=== PATIENT | male | born 1980 | race Caucasian/White ===

== ENCOUNTER 2018-05-12 07:25 | Day surgery (SDC) | payer OTHER ==
[2018-04-29 09:17] VITALS: BMI 29.8
[2018-05-12] MEDS ORDERED: Morphine 10 mg/5 ml Oral Soln PO PRN (08:26)
[2018-05-12] MEDS ORDERED: Dextrose 5%/0.45% NS 1,000 ML IV SCH (08:30)
[2018-05-12] MEDS ORDERED: Propofol 10 mg/ml Inj (20 ML) ONE (09:13)
[2018-05-12] MEDS ORDERED: Rocuronium 10 mg/ml (5 ml) ONE (09:13)
[2018-05-12] MEDS ORDERED: Lidocaine Hydrochloride 5 ML INJ ONE (09:13)
[2018-05-12] MEDS ORDERED: EPINEPHrine 1:1000 Nasal Sol(30mL) ONE (09:16)
[2018-05-12] MEDS: ceFAZolin 1 gm FROZEN Premix 2 GM/100 ML ML IVPB ONE ×2 (09:25→09:30)
[2018-05-12] MEDS ORDERED: Lidocaine/Epinephrine 1% 1:100000 10 ML IJ ONE (09:25)
[2018-05-12] MEDS ORDERED: Neostigmine Methylsulfate 3mg/3ml Syringe IV ONE (10:13)
[2018-05-12] MEDS: HYDROmorphone 0.5 mg/0.5 ml ISec IVP PRN ×2 (10:33→11:10)
[2018-05-12 12:00] VITALS: RESP 18
[2018-05-12] MEDS ORDERED: Lactated Ringer's 1,000 ML IV ONE (12:15)
[2018-05-12 12:56] VITALS: BP 149/89; PULSE 95; TEMP 97.9; O2SAT 98
--- NOTE | 2018-05-12 13:40 | OP ---
PROCEDURE DATE: 05/12/2018 PREOPERATIVE DIAGNOSIS: Deviated septum, large turbinates. POSTOPERATIVE DIAGNOSIS: Deviated septum, large turbinates. PROCEDURES: Septoplasty, bilateral inferior turbinate submucosal reduction. SURGEON: Duglas Simons MD. SIGNIFICANT FINDINGS: Large turbinates and deviated septum. DESCRIPTION OF PROCEDURE: The patient was brought into room, placed in supine position. Anesthesia was initiated through an ET tube. The patient was draped in the usual manner. Adrenaline-soaked pledgets were inserted into the nasal cavity, remained there for at least 5 minutes and removed. The septum was injected with lidocaine with epinephrine on both sides. A Inderjit incision was made on the left and mucoperichondrial flap was raised. A vertical incision was made in the cartilage, leaving a 1.5 cm anterior and superior strut and a mucoperichondrial flap was raised on the other side. Deviated portions of the cartilage and bone were removed using forceps and chisel. A quilting suture was used to suture the two flaps together and close the [place] incision. The 0-degree scope was inserted in the nasal cavity. The inferior turbinates were noted to be enlarged and reduced in size going from inferior to superior, anterior posterior direction, first on the left, then on the right. Bleeding was controlled on both sides using suction cautery. Splints were placed. The patient was taken off anesthesia and taken to recovery room in stable manner. Duglas Simons MD
== END 2018-05-12 12:53 | disposition home or self-care (01) ==
LOC: C.SDS 07:25
PROVIDERS: ATTEND Otolaryngology
DX: J34.2 Deviated nasal septum (principal); J34.3 Hypertrophy of nasal turbinates
CPT/HCPCS: 30140; 30520; 88304; J0690; J1100; J1170; J2405; J2704; J2710; J3010; J7030; J7040; J7120